=== PATIENT | female | born 1980 | race Caucasian/White ===

== ENCOUNTER 2016-10-11 01:57 | Inpatient (IN) | payer OTHER ==
[~2016-10-11] VITALS: Ht 157.5 cm; Wt 74.0 kg
[2016-10-11] MEDS ORDERED: OXYTOCIN 30U/ 0.9% NaCL 500ML 500 ML IV ONE (02:04)
[2016-10-11] MEDS: LACTATED RINGERS 1,000 ML IV SCH ×3 (02:17→19:03)
[2016-10-11] MEDS ORDERED: LIDOCAINE 1%, 20ML ONE (02:24)
[2016-10-11] MEDS ORDERED: MISOPROSTOL 200 MCG TABLET ONE (02:24)
[2016-10-11] MEDS ORDERED: NEWBORN KIT ONE (02:24)
[2016-10-11] MEDS ORDERED: OXYTOCIN 30U/ 0.9% NaCL 500ML 0 ML ONE (02:24)
[2016-10-11] MEDS ORDERED: ALUMINUM/MAG/SIMETHICONE 30 ML UDC PO PRN (02:30)
[2016-10-11] MEDS ORDERED: CALCIUM CARBONATE 500 MG TAB.CHEW PO PRN (02:30)
[2016-10-11] MEDS ORDERED: TERBUTALINE 1 MG/ML, 1ML IVPush PRN (02:30)
[2016-10-11] MEDS ORDERED: METOCLOPRAMIDE 5 MG/ML, 2ML IVPush PRN (02:30)
[2016-10-11] MEDS ORDERED: FENTANYL PF 100 MCG/2ML IVPush PRN (02:30)
[2016-10-11] MEDS ORDERED: SODIUM CITRATE/CITRIC ACID 30 ML UDC PO PRN (02:30)
[2016-10-11] MEDS ORDERED: FENTANYL PF 100 MCG/2ML IV PRN (02:30)
[2016-10-11] MEDS ORDERED: ONDANSETRON 2MG/ML, 2ML IVPush PRN (02:30)
[2016-10-11] MEDS ORDERED: BETAMETHASONE 6 MG/ML, 5ML IM ONE (03:22)
[2016-10-11] MEDS ORDERED: BETAMETHASONE 6 MG/ML, 5ML IM SCH (03:30)
[2016-10-11] MEDS ORDERED: PENICILLIN GK 5,000,000 UNITS in DEXTROSE 5% 100 ML IVPB ONE (03:30)
[2016-10-11] MEDS ORDERED: ERYTHROMYCIN BASE 250 MG TABLET PO ONE (04:00)
[2016-10-11] MEDS: PENICILLIN GK 2,500,000 UNITS in DEXTROSE 5% 100 ML IVPB SCH ×5 (07:28→23:18)
[2016-10-11 07:44] VITALS: BP 108/66
[2016-10-11] MEDS ORDERED: OXYTOCIN 30U/ 0.9% NaCL 500ML 500 ML ONE (08:23)
[2016-10-11] MEDS ORDERED: OXYTOCIN 30U/ 0.9% NaCL 500ML 500 ML IV PRN (08:46)
[2016-10-11] MEDS ORDERED: PREN1TAB60 PO (09:17)
[2016-10-11] MEDS ORDERED: HYDR250V6 IM (09:17)
[2016-10-11] MEDS ORDERED: OMEP20TA62 PO (09:17)
[2016-10-11] MEDS: D5%-LACTATED RINGERS 1,000 ML IV SCH ×3 (10:04→23:11)
[2016-10-11] MEDS ORDERED: FENTANYL/BUPIV./NS/PF 250 ML EPIDCONT ONE (22:15)
[2016-10-11] MEDS ORDERED: FENTANYL/BUPIV./NS/PF 250 ML EPIDCONT SCH ×2 (22:17→22:52)
[2016-10-11] MEDS ORDERED: LACTATED RINGERS 1,000 ML IV SCH (22:17)
[2016-10-11] MEDS ORDERED: EPHEDRINE 50 MG/ML, 1ML IVPush PRN ×2 (22:30→23:00)
[2016-10-11] MEDS ORDERED: NALOXONE 0.4 MG/ML, 1ML IVPush PRN ×2 (22:30→23:00)
[2016-10-11] MEDS ORDERED: LACTATED RINGERS 1,000 ML IVBOLUS PRN ×2 (22:30→23:00)
[2016-10-12] MEDS ORDERED: TERBUTALINE 1 MG/ML, 1ML ONE (00:18)
[2016-10-12] MEDS: LACTATED RINGERS 1,000 ML IV SCH ×3 (02:04→06:52)
[2016-10-12] MEDS: D5%-LACTATED RINGERS 1,000 ML IV SCH (02:04)
[2016-10-12] MEDS ORDERED: BUPIVACAINE/PF 0.25% ONE (03:00)
[2016-10-12] MEDS: PENICILLIN GK 2,500,000 UNITS in DEXTROSE 5% 100 ML IVPB SCH (03:13)
[2016-10-12] MEDS: OXYTOCIN 30U/ 0.9% NaCL 500ML 500 ML IV SCH ×6 (05:03→15:03)
[2016-10-12] MEDS ORDERED: ONDANSETRON 2MG/ML, 2ML IV PRN (05:30)
[2016-10-12] MEDS ORDERED: OXYcodone/APAP 5/325MG TABLET PO PRN (05:30)
[2016-10-12] MEDS ORDERED: MISOPROSTOL 200 MCG TABLET PR PRN (05:30)
[2016-10-12] MEDS ORDERED: IBUPROFEN 600 MG TABLET ONE (05:32)
[2016-10-12] MEDS ORDERED: OXYTOCIN 30U/ 0.9% NaCL 500ML 500 ML ONE (05:32)
[2016-10-12] MEDS: IBUPROFEN 600 MG TABLET PO PRN ×3 (05:38→21:36)
[2016-10-12 07:11] VITALS: BP 95/56
[2016-10-12] MEDS: PRENATAL VIT/IRON/FA 1 EACH TABLET PO SCH (09:00)
[2016-10-12 09:15] VITALS: BP 108/71
[2016-10-12 12:40] VITALS: BP 109/72
[2016-10-12] MEDS: OXYcodone/APAP 5/325MG TABLET PO PRN ×2 (15:17→21:36)
[2016-10-12 16:55] VITALS: BP 120/55
[2016-10-12 19:50] VITALS: BP 116/78
[2016-10-12] MEDS: DOCUSATE 100 MG CAPSULE PO PRN (21:36)
[2016-10-13 00:08] VITALS: BP 111/72
[2016-10-13] MEDS: OXYTOCIN 30U/ 0.9% NaCL 500ML 500 ML IV SCH ×2 (01:03→11:03)
[2016-10-13 04:50] VITALS: BP 117/87
[2016-10-13] MEDS: IBUPROFEN 600 MG TABLET PO PRN ×2 (04:51→12:44)
[2016-10-13] MEDS: OXYcodone/APAP 5/325MG TABLET PO PRN ×2 (04:51→12:44)
[2016-10-13 08:10] VITALS: BP 130/82
[2016-10-13] MEDS: DOCUSATE 100 MG CAPSULE PO PRN (09:00)
[2016-10-13] MEDS: PRENATAL VIT/IRON/FA 1 EACH TABLET PO SCH (09:00)
[2016-10-13] MEDS ORDERED: OXYC-302 PO (11:38)
[2016-10-13] MEDS ORDERED: IBUP-1222 PO (11:39)
[2016-10-13] MEDS ORDERED: DOCU-30 PO (11:40)
== END 2016-10-13 14:14 | disposition home or self-care (01) | DRG 775 ==
LOC: LDIP 01:57 → 2NW 10-12 09:01
PROVIDERS: ADMIT Obstetrics & Gynecology; ATTEND Obstetrics & Gynecology
PROC: 10E0XZZ Delivery of Products of Conception, External Approach (ICD-10-PCS; principal; 2016-10-12)
PROC: 00HU33Z Insertion of Infusion Device into Spinal Canal, Percutaneous Approach (ICD-10-PCS; 2016-10-12)
PROC: 3E0R3CZ (ICD-10-PCS; 2016-10-12)
DX: O42.013 Preterm premature rupture of membranes, onset of labor within 24 hours of rupture, third trimester (principal); Z37.0 Single live birth; Z88.7 Allergy status to serum and vaccine; Z3A.36 36 weeks gestation of pregnancy
CPT/HCPCS: 36415; 85025; 86850; 86900; 87081; 89060; J0702; J2540; J3490; J2590; J3010; J7120; J7121; Q0114

== ENCOUNTER → 2018-12-18 | Outpatient (CLI) | payer OTHER ==
[~2018-12-18] MED LIST: DOCU-131 PO; HYDR250V6 IM; IBUP-1222 PO; OMEP20TA62 PO; OXYC-302 PO; PREN1TAB60 PO
[2018-12-18 09:12] LABS: BASOPHILS # (AUTO) 0.02 x10^3/uL (0-0.1); BASOPHILS % (AUTO) 1 % (0-1); EOSINOPHILS # (AUTO) 0.08 x10^3/uL (0-0.4); EOSINOPHILS % (AUTO) 2 % (1-7); LYMPHOCYTES # (AUTO) 1.63 x10^3/uL (1-3.4); LYMPHOCYTES % (AUTO) 38 % (22-44); MD NO; MEAN CORPUSCULAR HEMOGLOBIN 33.4 pg (27.0-34.8); MEAN CORPUSCULAR HGB CONC 32.9 g/dL (32.4-35.8); MEAN CORPUSCULAR VOLUME 101.4 fL (80-100); MEAN PLATELET VOLUME 6.4 fL (7.4-10.4); MONOCYTES # (AUTO) 0.29 x10^3/uL (0.2-0.8); MONOCYTES % (AUTO) 7 % (2-9); NEUTROPHILS # (AUTO) 2.34 x10^3/uL (1.8-6.8); NEUTROPHILS % (AUTO) 54 % (42-75); PLATELET COUNT 290 x10^3/uL (130-400); RED BLOOD COUNT 4.15 x10^6/uL (3.82-5.3); RED CELL DISTRIBUTION WIDTH 12.4 % (9.6-15.2)
[2018-12-18 09:21] LABS: ALANINE AMINOTRANSFERASE 25 U/L (12-78); ALBUMIN 3.7 g/dL (3.4-5.0); ANION GAP 7 mmol/L (5-15); CALCIUM 8.6 mg/dL (8.5-10.1); CHLORIDE 109 mmol/L (98-107)
[2018-12-18 09:30] LABS: ALKALINE PHOSPHATASE 35 U/L (45-117); BILIRUBIN,TOTAL 0.6 mg/dL (0.2-1.0); CHOL/HDL RATIO 2.1; CHOLESTEROL, TOTAL 140 mg/dL (140-239); CREATININE 0.72 mg/dL (0.55-1.02); FREE T4 (FREE THYROXINE) 1.03 ng/dL (0.76-1.46); HDL CHOL % 48 % (28-40); HDL CHOLESTEROL (DIRECT) 67 mg/dL (40-60); LDL CHOLESTEROL,CALCULATED 58 mg/dL (54-169); LDL/HDL RATIO 0.9 (0.5-3.0); TOTAL PROTEIN 6.8 g/dL (6.4-8.2); TRIGLYCERIDES 73 mg/dL (50-200); VLDL CHOLESTEROL 15 mg/dL (0-25)
== END | disposition home or self-care (01) ==
LOC: LAB 08:57
PROVIDERS: ATTEND Nurse Practitioner Family
DX: Z13.220 Encounter for screening for lipoid disorders (principal)
CPT/HCPCS: 36415; 80053; 80061; 82306; 84439; 84443; 85025